=== PATIENT | female | born 1975 | race Caucasian/White ===

== ENCOUNTER → 2017-12-19 | Day surgery (SDC) | payer OTHER ==
[~2017-12-19] VITALS: Ht 165.1 cm; Wt 74.4 kg
[~2017-12-19] MED LIST: ADDERALL XR 5 MG5 MG PO; ALPRAZOLAM0.5 M4 PO; ARIMIDEX1 M1 PO; ELIGARD45 MG SQ; LEXAPRO20 M1 PO; PROLIA60 MG/1 ML SC; WELLBUTRIN XL150 M2 PO
--- NOTE | 2017-12-19 12:09 | Operative Report ---
Operative/Inv Procedure Report Surgery Date: 12/19/17 Name of Procedure: Right knee arthroscopy, partial medial meniscectomy, left trigger thumb release Pre-Operative Diagnosis: Right knee medial meniscus tear, left trigger thumb Post-Operative Diagnosis: Right knee medial meniscus tear, left trigger thumb Estimated Blood Loss: alejandra Surgeon/Parish Visitor: Derek Shepherd MD Anesthesia: laryngeal mask airway Complications: None Condition: Stable to PACU Operative Indication: This is a 42-year-old female with long-standing right knee pain and has failed conservative care. MRI showed a medial meniscus tear. She has also been concurrently treated for a left trigger thumb that has also failed conservative care. Risks and benefits of the procedure were discussed with the patient at length. Risks include but are not limited to nerve damage, muscle damage, infection, blood loss, blood clots, pulmonary embolus, and even . The patient agreed to the above risks and elected to proceed with surgery. Operative/Procedure Note Note: The patient was placed supine on the operating room table. A tourniquet was applied. The lower extremity was prepped and draped in normal sterile fashion. A timeout was performed before the incision. The site marking was visualized before incision. After the leg was prepped and draped, an Esmarch was used to exsanguinate the extremity. The tourniquet was inflated. A standard inferolateral portal was established with an 11 blade. The camera was inserted. A medial portal was established with a spinal needle and an 11 blade. The diagnostic arthroscopy was then performed which showed the above findings. An upbiter as well as a shaver was used to debride the junction of the body and posterior horn back to a stable rim of cartilage. The camera was then switched to the medial portal and further debridement of the body was then performed. The shaver was used to complete the debridement. The knee was copiously irrigated. The portal sites were closed with 3-0 nylon suture in a simple interrupted fashion. The knee was injected with 10 mL of 0.25% Marcaine with epinephrine. A dry sterile dressing was applied. A tourniquet was applied to the arm above the elbow. The upper extremity was prepped and draped in the normal sterile fashion. The patient received IV antibiotics prior to incision. A time out was performed and the site marking was also visualized prior to incision. An Esmarch was used to exsanguinate the extremity. The tourniquet was inflated. An incision was made obliquely overlying the metacarpal phalangeal crease. Scissors were used to perform blunt dissection. Care was taken to protect the radial sensory nerve. The A1 vicki was identified and incised. The tendon was delivered from the wound and no triggering was noted. Once the release was complete the wound was copiously irrigated. The incision was closed with 3-0 nylon suture in a simple interrupted fashion. 0.25% Marcaine was then injected to anesthetize the wound. A dry sterile dressing was applied and the patient was transferred to PACU in stable condition. Findings: Complex tear of the medial meniscus at the junction of the body and posterior horn. Grade 2 chondral changes overlying a small portion of the medial femoral condyle. Medial tibial plateau articular cartilage intact. ACL and PCL intact. Grade 1 chondral softening of the lateral tibial plateau. Lateral femoral condyle articular cartilage intact. Patellofemoral joint articular cartilage intact. No loose bodies noted.
== END ==
LOC: STS 02:00
DX: M23.231 Derangement of other medial meniscus due to old tear or injury, right knee (principal); M65.312 Trigger thumb, left thumb; Z85.3 Personal history of malignant neoplasm of breast
CPT/HCPCS: J0131; J1100; J1885; J2250; J2405